=== PATIENT | female | born 1990 | race Caucasian/White ===

== ENCOUNTER 2017-10-09 03:30 | Emergency (ER) | payer SELFPAY ==
[~2017-10-09] VITALS: Ht 177.8 cm; Wt 120.2 kg
[2017-10-09 03:35] VITALS: TEMP 36.4; Ht 177.8 cm; Wt 120.2 kg
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
[2017-10-09 05:22] VITALS: BP 125/60; PULSE 81; O2SAT 97
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
== END 2017-10-09 05:25 | disposition home or self-care (01) ==
LOC: EDBD 03:30 → C.EDA 03:32
DX: S09.90XA Unspecified injury of head, initial encounter (principal); S00.81XA Abrasion of other part of head, initial encounter; T76.11XA Adult physical abuse, suspected, initial encounter; Y00.XXXA Assault by blunt object, initial encounter; Y92.59 Other trade areas as the place of occurrence of the external cause; F17.200 Nicotine dependence, unspecified, uncomplicated

== ENCOUNTER 2017-11-20 16:33 | Emergency (ER) | payer OTHER ==
[~2017-11-20] VITALS: Ht 177.8 cm; Wt 118.0 kg
[2017-11-20 16:46] VITALS: TEMP 36.6; Ht 177.8 cm; Wt 118.0 kg
[2017-11-20] MEDS ORDERED: ONDANSETRON INJ 2 MG/ML 2 ML VIAL IV STA (17:24)
[2017-11-20] MEDS ORDERED: SODIUM CHLORIDE 0.9% 1000ML 2,000 ML IV STA (17:24)
[2017-11-20] MEDS ORDERED: FAMOTIDINE 20 MG TAB PO ONE (17:30)
--- NOTE | 2017-11-20 17:37 | EMERGENCY ROOM VISIT NOTE ---
History Report prepared by Eric: Lakshmi Sinclair Under the Supervision of: Dr. Kar Ching M.D. First contact with patient: 17:19 Chief Complaint: GI ASSESSMENT Stated Complaint: VOMITING BLOOD, DIARRHEA, BLACK/TARRY STOOL, ABD P History of Present Illness The patient is a 27 year old female who presents to the Emergency Room with complaints of a GI assessment today. She reports having nausea, vomiting, and diarrhea over the last 4 days. She states that she had bloody stool and that it is black now, and states that she last vomited at 0200 this morning. The patient reports that when she vomited 4 days ago there was blood in it. She reports that she had a bowel movement today and that it has been more solid today than it had been the last couple of days. She also reports having abdominal pain, dizziness, and headaches but denies having fevers, chills, a cough, and blood in her urine. The patient states that she felt sick after dinner 4 days ago and thought that her symptoms would go away but they have not. She reports that she started new anxiety medications today and reports that she saw her psychiatrist yesterday, but did not tell her psychiatrist about her GI symptoms. The patient states that she does not take any other medications. She states that she is due for her menstrual cycle soon but does not think that her pain is related. The patient states that she has not had this pain before and denies a family history of colitis, bowel disease, and colon cancer. Source of History: patient Onset: today Position: other (GI system ) Quality: other (assessment ) Associated Symptoms: + headache, + nausea, + vomiting, + diarrhea, No fevers , No chills, No cough Note: additional symptoms: black and bloody stool, blood in vomit, dizziness denies: blood in urine Review of Systems See HPI for pertinent positives and negatives. A total of ten systems were reviewed and were otherwise negative. Past Medical & Surgical Medical Problems: (1) Anxiety Family History Diabetes mellitus Hypertension Social History Smoking Status: Current Some Day Smoker Alcohol Use: none Drug Use: none Occupation Status: employed Current/Historical Medications Scheduled Bupropion (Wellbutrin), 100 MG PO DAILY Buspirone Hcl (Buspirone Hcl), 10 MG PO TID Famotidine (Pepcid), 20 MG PO BID Allergies Coded Allergies: No Known Allergies (Unverified , 11/20/17) Physical Exam Vital Signs Date Time Temp Pulse Resp B/P (MAP) Pulse Ox O2 Delivery O2 Flow Rate FiO2 11/20/17 20:07 78 20 120/71 98 11/20/17 18:13 76 11/20/17 16:46 36.6 84 18 123/75 95 Room Air Physical Exam GENERAL: Awake, alert, fatigued-appearing, in no distress HENT: Normocephalic, atraumatic. Dry mucous membranes, otherwise oropharynx unremarkable. EYES: Normal conjunctiva. Sclera non-icteric. NECK: Supple. No nuchal rigidity. FROM. No JVD. RESPIRATORY: Clear to auscultation. CARDIAC: Regular rate, normal rhythm. Extremities warm and well perfused. Pulses equal. ABDOMEN: Soft, non-distended. Generalized abdominal discomfort. No discrete tenderness. No rebound or guarding. No masses. RECTAL: No hemorrhoids. Brown stool. Guaiac positive. MUSCULOSKELETAL: Chest examination reveals no tenderness. The back is symmetrical on inspection without obvious abnormality. There is no CVA tenderness to palpation. No joint edema. LOWER EXTREMITIES: Calves are equal size bilaterally and non-tender. No edema. No discoloration. NEURO: Normal sensorium. No sensory or motor deficits noted. SKIN: No rash or jaundice noted. Medical Decision & Procedures ER Provider Diagnostic Interpretation: Radiology results as stated below per my review and radiologist interpretation: CHEST ONE VIEW PORTABLE CLINICAL HISTORY: Hemoptysis. Pain, radiating to the abdomen. COMPARISON STUDY: No previous studies for comparison. FINDINGS: The cardiac and mediastinal contours are normal. There is no evidence of focal pulmonary consolidation. There is no evidence of failure. No pleural effusions are visualized.[ No free intraperitoneal air is visualized. IMPRESSION: No active disease in the chest. Electronically signed by: Adonis Bustillo M.D. 11/20/2017 5:46 PM Dictated Date/Time: 11/20/2017 5:45 PM Laboratory Results 11/20/17 18:00 Red Blood Count 4.37, Mean Corpuscular Volume 93.1, Mean Corpuscular Hemoglobin 31.8, Mean Corpuscular Hemoglobin Concent 34.2, Mean Platelet Volume 9.1, Neutrophils (%) (Auto) 59.3, Lymphocytes (%) (Auto) 30.1, Monocytes (%) (Auto) 7.5, Eosinophils (%) (Auto) 2.5, Basophils (%) (Auto) 0.3, Neutrophils # (Auto) 4.10, Lymphocytes # (Auto) 2.08, Monocytes # (Auto) 0.52, Eosinophils # (Auto) 0.17, Basophils # (Auto) 0.02 11/20/17 18:00 Test 11/20/17 18:00 11/20/17 18:12 White Blood Count 6.91 K/uL (4.8-10.8) Red Blood Count 4.37 M/uL (4.2-5.4) Hemoglobin 13.9 g/dL (12.0-16.0) Hematocrit 40.7 % (37-47) Mean Corpuscular Volume 93.1 fL (80-100) Mean Corpuscular Hemoglobin 31.8 pg (25-34) Mean Corpuscular Hemoglobin Concent 34.2 g/dl (32-36) Platelet Count 308 K/uL (130-400) Mean Platelet Volume 9.1 fL (7.4-10.4) Neutrophils (%) (Auto) 59.3 % Lymphocytes (%) (Auto) 30.1 % Monocytes (%) (Auto) 7.5 % Eosinophils (%) (Auto) 2.5 % Basophils (%) (Auto) 0.3 % Neutrophils # (Auto) 4.10 K/uL (1.4-6.5) Lymphocytes # (Auto) 2.08 K/uL (1.2-3.4) Monocytes # (Auto) 0.52 K/uL (0.11-0.59) Eosinophils # (Auto) 0.17 K/uL (0-0.5) Basophils # (Auto) 0.02 K/uL (0-0.2) RDW Standard Deviation 44.4 fL (36.4-46.3) RDW Coefficient of Variation 13.0 % (11.5-14.5) Immature Granulocyte % (Auto) 0.3 % Immature Granulocyte # (Auto) 0.02 K/uL (0.00-0.02) Anion Gap 6.0 mmol/L (3-11) Est Creatinine Clear Calc Drug Dose 147.2 ml/min Estimated GFR () 117.1 Estimated GFR (Non- 101.0 BUN/Creatinine Ratio 19.5 (10-20) Calcium Level 8.6 mg/dl (8.5-10.1) Total Bilirubin 0.3 mg/dl (0.2-1) Direct Bilirubin < 0.1 mg/dl (0-0.2) Aspartate Amino Transf (AST/SGOT) 61 U/L (15-37) Alanine Aminotransferase (ALT/SGPT) 102 U/L (12-78) Alkaline Phosphatase 116 U/L (45-117) Total Protein 7.4 gm/dl (6.4-8.2) Albumin 3.1 gm/dl (3.4-5.0) Lipase 100 U/L (73-393) Urine Color YELLOW Urine Appearance CLEAR (CLEAR) Urine pH 6.0 (4.5-7.5) Urine Specific [place] 1.023 (1.000-1.030) Urine Protein NEG (NEG) Urine Glucose (UA) NEG (NEG) Urine Ketones NEG (NEG) Urine Occult Blood NEG (NEG) Urine Nitrite NEG (NEG) Urine Bilirubin NEG (NEG) Urine Urobilinogen NEG (NEG) Urine Leukocyte Esterase SMALL (NEG) Urine WBC (Auto) 10-30 /hpf (0-5) Urine RBC (Auto) 0-4 /hpf (0-4) Urine Hyaline Casts (Auto) 1-5 /lpf (0-5) Urine Epithelial Cells (Auto) >30 /lpf (0-5) Urine Bacteria (Auto) 2+ (NEG) Urine Test NEG (NEG) Laboratory results reviewed by me Medications Administered Medications (Trade) Dose Ordered Sig/Aaron Route Start Time Stop Time Status Last Admin Dose Admin Sodium Chloride 2,000 ml @ 999 mls/hr Q2H1M STAT IV 11/20/17 17:24 11/20/17 19:24 DC 11/20/17 18:03 999 MLS/HR Famotidine (Pepcid Tab) 20 mg NOW ONCE PO 11/20/17 17:30 11/20/17 17:32 DC 11/20/17 18:01 20 MG Ondansetron HCl (Zofran Inj) 4 mg NOW STAT IV 11/20/17 17:24 11/20/17 17:32 DC 11/20/17 18:01 4 MG Miscellaneous Medication (Gi Cocktail) 24 ml NOW STAT PO 11/20/17 19:17 11/20/17 19:18 DC 11/20/17 19:28 24 ML ED Course 1723: The patient was evaluated in room C5. A complete history and physical exam was performed. 1914: I reevaluated the patient and she is doing better. Discussed results and discharge instructions: She verbalized understanding and agreement. The patient is ready for discharge. Medical Decision I reviewed the patient's past medical history, medications, and the nursing notes as described above. Differential diagnosis: Etiologies such as diverticulosis, AVM, coagulopathy, colitis, inflammatory bowel disease, malignancy, Rufina-Muhammad tear, esophagitis, peptic ulcer disease , variceal bleed, gastritis, epistaxis, fissure, hemorrhoids, as well as others were entertained. The patient is a 27-year-old woman who presents emergency department with the complaint of nausea vomiting and diarrhea that began several days ago with initially having blood in vomit and black stools all which are improving per hpi. On arrival, the patient is fatigued appearing but no acute distress, afebrile stable vital signs. Rectal exam demonstrates brown stool that is guaiac positive. Exam otherwise unremarkable. Labs also unremarkable including WBC, H&H within normal limits. UA is dirty and the patient denies any symptoms thus will wait for cultures to inform need for treatment. The patient is feeling improved after IV fluids and Pepcid. Symptoms most likely related to a gastritis/gastroenteritis. Given the patient's otherwise well- appearing with reassuring workup there is no need additional imaging or emergent endoscopy. Thus will treat the patient with Pepcid she will follow-up with her PCP. Findings and plan for follow-up reviewed with patient. Patient agreeable and d/c'd per discharge instructions. Medication Reconcilliation Current Medication List: was personally reviewed by me Blood Pressure Screening Patient's blood pressure: Normal blood pressure Impression Primary Impression: Gastroenteritis Scribe Attestation The scribe's documentation has been prepared under my direction and personally reviewed by me in its entirety. I confirm that the note above accurately reflects all work, treatment, procedures, and medical decision making performed by me. Departure Information Dispostion Home / Self-Care Prescriptions Famotidine (PEPCID) 20 Mg Tab 20 MG PO BID for 14 Days, #28 TAB Prov: Kar Ching M.D. 11/20/17 Referrals No Doctor, Assigned (PCP) Forms HOME CARE DOCUMENTATION FORM, IMPORTANT VISIT INFORMATION Patient Instructions ED Gastritis, ED Gastroenteritis Viral, [facility] Additional Instructions Please follow up with your primary care physician on Thursday for re-evaluation. You likely have a viral gastroenteritis/gastritis. Otherwise, your exam, lab results, and xray did not show signs of an emergent condition at this time. Acetaminophen for pain and fevers as needed. Zofran as needed for nausea. Pepcid for acid reduction. Drink plenty of fluids to ensure hydration. Return to the emergency department for worsening symptoms as described in the accompanying instructions.
--- NOTE | 2017-11-20 17:47 | DIAGNOSTIC IMAGING REPORT ---
CHEST ONE VIEW PORTABLE CLINICAL HISTORY: Hemoptysis. Pain, radiating to the abdomen. COMPARISON STUDY: No previous studies for comparison. FINDINGS: The cardiac and mediastinal contours are normal. There is no evidence of focal pulmonary consolidation. There is no evidence of failure. No pleural effusions are visualized.[ No free intraperitoneal air is visualized. IMPRESSION: No active disease in the chest. Electronically signed by: Adonis Bustillo M.D. 11/20/2017 5:46 PM Dictated Date/Time: 11/20/2017 5:45 PM
[2017-11-20] MEDS ORDERED: BUPR-83 PO (18:17)
[2017-11-20] MEDS ORDERED: BUSP-8 PO (18:17)
[2017-11-20 18:21] LABS: BASO % 0.3 %; BASO ABS # 0.02 K/uL (0-0.2); EOS % 2.5 %; EOS ABS # 0.17 K/uL (0-0.5); HEMATOCRIT 40.7 % (37-47); HEMOGLOBIN 13.9 g/dL (12.0-16.0); IG# 0.02 K/uL (0.00-0.02); LYMPH % 30.1 %; LYMPH ABS # 2.08 K/uL (1.2-3.4); MEAN CELL VOLUME 93.1 fL (80-100); MEAN CORPUSCULAR HEMOGLOBIN 31.8 pg (25-34); MEAN CORPUSCULAR HGB CONC 34.2 g/dl (32-36); MEAN PLATELET VOLUME 9.1 fL (7.4-10.4); MONO % 7.5 %; MONO ABS # 0.52 K/uL (0.11-0.59); NEUT % 59.3 %; PLATELET COUNT 308 K/uL (130-400); RED CELL DISTRIBUTION WIDTH SD 44.4 fL (36.4-46.3); WHITE BLOOD COUNT 6.91 K/uL (4.8-10.8)
[2017-11-20 18:40] LABS: ALBUMIN 3.1 gm/dl (3.4-5.0); ALT/SGPT 102 U/L (12-78); AST/SGOT 61 U/L (15-37); BLOOD UREA NITROGEN 16 mg/dl (7-18); CALCIUM 8.6 mg/dl (8.5-10.1); CARBON DIOXIDE 24 mmol/L (21-32); GLUCOSE 96 mg/dl (70-99); LIPASE 100 U/L (73-393); POTASSIUM 3.9 mmol/L (3.5-5.1); SODIUM 137 mmol/L (136-145)
[2017-11-20 18:43] LABS: ALKALINE PHOSPHATASE 116 U/L (45-117); TOTAL PROTEIN 7.4 gm/dl (6.4-8.2)
[2017-11-20] MEDS ORDERED: GI COCKTAIL PO STA (19:17)
[2017-11-20] MEDS ORDERED: FAMO20TA9 PO (19:21)
[2017-11-20] MEDS ORDERED: ALUMINUM/MAGNESIUM SUSP 30 ML UDC ONE (19:26)
[2017-11-20] MEDS ORDERED: LIDOCAINE HCL 2% VISC SOLN 20 ML UDC ONE (19:26)
[2017-11-20 20:07] VITALS: BP 120/71; PULSE 78; O2SAT 98
== END 2017-11-20 20:08 | disposition home or self-care (01) ==
LOC: C.EDB 16:35 → C.EDC 20:08
DX: K52.9 Noninfective gastroenteritis and colitis, unspecified (principal); F41.9 Anxiety disorder, unspecified; Z83.3 Family history of diabetes mellitus; Z82.49 Family history of ischemic heart disease and other diseases of the circulatory system; F17.210 Nicotine dependence, cigarettes, uncomplicated; Z79.899 Other long term (current) drug therapy

== ENCOUNTER → 2017-12-09 | Outpatient (CLI) | payer OTHER ==
[~2017-12-09] MED LIST: BUPR-83 PO; BUSP-8 PO
[2017-12-09 12:26] LABS: BASO % 0.4 %; BASO ABS # 0.02 K/uL (0-0.2); EOS % 4.2 %; EOS ABS # 0.19 K/uL (0-0.5); HEMATOCRIT 39.4 % (37-47); HEMOGLOBIN 13.3 g/dL (12.0-16.0); IG# 0.02 K/uL (0.00-0.02); LYMPH % 30.3 %; LYMPH ABS # 1.38 K/uL (1.2-3.4); MEAN CELL VOLUME 92.9 fL (80-100); MEAN CORPUSCULAR HEMOGLOBIN 31.4 pg (25-34); MEAN CORPUSCULAR HGB CONC 33.8 g/dl (32-36); MONO % 6.6 %; NEUT % 58.1 %; NEUT ABS # 2.65 K/uL (1.4-6.5); PLATELET COUNT 312 K/uL (130-400); RED CELL DISTRIBUTION WIDTH CV 12.7 % (11.5-14.5); RED CELL DISTRIBUTION WIDTH SD 42.9 fL (36.4-46.3); WHITE BLOOD COUNT 4.56 K/uL (4.8-10.8)
[2017-12-09 15:10] LABS: ALBUMIN 3.5 gm/dl (3.4-5.0); ALT/SGPT 37 U/L (12-78); AST/SGOT 22 U/L (15-37); BLOOD UREA NITROGEN 11 mg/dl (7-18); CALCIUM 8.8 mg/dl (8.5-10.1); CARBON DIOXIDE 24 mmol/L (21-32); CREATININE 0.78 mg/dl (0.60-1.20); GLUCOSE 91 mg/dl (70-99); POTASSIUM 3.6 mmol/L (3.5-5.1); SODIUM 137 mmol/L (136-145)
[2017-12-09 15:23] LABS: ALKALINE PHOSPHATASE 89 U/L (45-117); CHOLESTEROL 195 mg/dl (0-200); LDL CHOLESTEROL CALCULATED 130 mg/dl; TOTAL PROTEIN 8.1 gm/dl (6.4-8.2)
== END | disposition home or self-care (01) ==
LOC: C.LAB 10:10
PROVIDERS: ATTEND Psychiatry & Neurology Psychiatry
DX: F90.9 Attention-deficit hyperactivity disorder, unspecified type (principal)

== ENCOUNTER 2019-02-13 22:04 | Inpatient (IN) ==
[2019-02-13] MEDS ORDERED: ONDANSETRON INJ 2 MG/ML 2 ML VIAL IV STA (23:37)
[2019-02-13] MEDS ORDERED: ACETAMINOPHEN 1,000 MG/100 ML VIAL IV ONE (23:37)
[2019-02-13] MEDS ORDERED: SODIUM CHLORIDE 0.9% 1000ML 2,000 ML IV SCH (23:45)
[2019-02-14] MEDS ORDERED: ALBUT/IPRATROP 3MG/0.5MG NEB 3 ML VIAL NEB STA (00:07)
[2019-02-14 00:14] LABS: Basophils # (auto) 0.01 K/uL (0-0.2); Basophils % (auto) 0.1 %; Hematocrit (blood only) 35.4 % (37-47); Hemoglobin 12.6 g/dL (12.0-16.0); Immature Granulocytes # (auto) 0.04 K/uL (0.00-0.02); Immature Granulocytes % (auto) 0.3 %; Lymphocytes # (auto) 0.74 K/uL (1.2-3.4); Lymphocytes % (auto) 6.4 %; Mean Corpuscular Hgb Conc 35.6 g/dL (32-36); Mean Corpuscular Volume 88.7 fL (80-100); Mean Platelet Volume 9.5 fL (7.4-10.4); Monocytes % (auto) 12.1 %; Neutrophils # (auto) 9.39 K/uL (1.4-6.5); Neutrophils % (auto) 81.1 %; Platelet Count 190 K/uL (130-400); RDW Coefficient of Variation 12.5 % (11.5-14.5); RDW Standard Deviation 40.6 fL (36.4-46.3); Red Blood Count 3.99 M/uL (4.2-5.4); White Blood Count 11.58 K/uL (4.8-10.8)
[2019-02-14 00:20] LABS: Appearance Urine Cloudy (Clear); Bacteria Urine Automated 4+ (Negative); Bilirubin Urine Negative (Negative); Blood Urine 2+ (Negative); Color Urine Dark Yellow; Epithelial Cell Urine Auto >30 /lpf (0-5); Glucose Urine UA Negative (Negative); Ketones Urine Trace (Negative); Leukocyte Esterase Urine 2+ (Negative); Nitrite Urine Positive (Negative); Protein Urine 2+ (Negative); Specific Gravity Urine 1.025 (1.000-1.030); Urobilinogen Urine Negative (Negative); WBC Urine Automated >30 /hpf (0-5); pH Urine 6.5 (4.5-7.5)
[2019-02-14 00:31] LABS: Albumin Level 3.2 gm/dl (3.4-5.0); BUN Creatinine Ratio 7.8 (10-20); Calcium 8.1 mg/dl (8.5-10.1); Creatinine Clr Calc Pharmacy 162.5 ml/min; Est GFR (African American) 134.3; Est GFR (Non-African American) 115.9; Potassium 3.2 mmol/L (3.5-5.1)
[2019-02-14 00:34] LABS: Albumin Globulin Ratio 0.8 (0.9-2); Bilirubin,Total 0.5 mg/dl (0.2-1); C Reactive Protein 15.9 mg/dl (0-0.29); Globulin 4.2 gm/dl (2.5-4.0); Total Protein 7.4 gm/dl (6.4-8.2)
[2019-02-14 00:38] LABS: Pregnancy Test, Serum Negative (Negative)
[2019-02-14] MEDS ORDERED: KETOROLAC TROMETHAMINE 15 MG/ML VIAL IV ONE (00:45)
[2019-02-14] MEDS ORDERED: cefTRIAXone SODIUM 2,000 MG in DEXTROSE 5% 50 ML IV STA (00:46)
[2019-02-14 01:00] LABS: Lyme Ab IgG w/WB Rflx Negative (Negative); Lyme Ab IgM w/WB Rflx Negative (Negative)
[2019-02-14] MEDS ORDERED: VANCOMYCIN HCL 2,250 MG in SODIUM CHLORIDE 0.9% 500 ML IV ONE (03:14)
[2019-02-14] MEDS ORDERED: VANCOMYCIN CONSULT ACTIVE PRN (03:14)
--- NOTE | 2019-02-14 03:30 | Emergency Department Note ---
Entered by Ela Mcmanus acting as a scribe for Hussein Arnold MD ED Provider Note CHIEF COMPLAINT: Flu like symptoms HISTORY OF PRESENT ILLNESS: The patient is a 28 year old female who presents to the Emergency Room with complaints of constant flu like symptoms that started two days ago. The patient reports she has been throwing up since Thursday. She notes she has a fever, chest pain, night sweats, and migraine. The patient states she has been hot and cold and has breathing difficulties. She reports her bowel movements are dark. The patient states she coughs before she vomits. She notes she does not have history of asthma. The patient reports shes gets a lot of UTI but never has frequency or burning. Pt denies LOC, headache, diaphoresis, diarrhea, visual changes, neck pain, nausea, abdominal pain, back pain, melena, hematochezia, urinary symptoms, numbness, weakness, lymphadenopathy, rash, or other complaints. REVIEW OF SYSTEMS: See HPI for pertinent positives and negatives. A total of ten systems were reviewed and were otherwise negative. PMHx/PSHx: Anxiety SOCIAL HISTORY: Patient lives at home. PHYSICAL EXAM: GENERAL: Awake, alert, uncomfortable-appearing, in no distress HENT: Normocephalic, atraumatic. Oropharynx unremarkable. EYES: PERRL. Normal conjunctiva. Sclera non-icteric. NECK: Inspection normal. Non-tender. Supple. No nuchal rigidity. FROM. No masses. RESPIRATORY: Clear to auscultation. No wheezes. No rales. Normal respiratory effort. CARDIAC: Tachycardic rate. Normal rhythm. Wheezing. No murmurs. No rubs. Extremities warm and well perfused. Pulses equal. No JVD. GI: Soft, non-distended. No tenderness to palpation. No rebound or guarding. No masses. RECTAL: Deferred. MUSCULOSKELETAL: Atraumatic. Chest examination reveals no tenderness. The back is symmetrical on inspection without obvious abnormality. There is no CVA tenderness to palpation. No joint edema. LOWER EXTREMITIES: Calves are equal size bilaterally and non-tender. No edema. No discoloration. NEURO: Normal sensorium. No sensory or motor deficits noted. SKIN: No rash or jaundice noted. EMERGENCY DEPARTMENT COURSE: 2336: Past medical records reviewed. The patient was evaluated in room C5, and a complete history and physical examination were performed. 0048: I checked on the patient. The patient is feeling better but no vomiting. Her body is still achy so I ordered her Toradol. I ordered a blood culture and a lactate. 0200: I checked on the patient. The patient is feeling better. 0245: Patient was reassessed. She is hemodynamically stable. Discussed admission to the hospital and in agreement. Vancomycin ordered. She notes that she has been getting UTIs about once or twice a year and does not remember the last antibiotic that she is been prescribed. MEDICAL DECISION MAKING: Triage Nursing notes reviewed and agree them. The patient's history was concerning for fever. Differential diagnosis: Etiologies such as viral syndrome, sepsis, bacteremia, otitis, pharyngitis, pneumonia, influenza,meningitis, urinary tract infection, as well as others were entertained. Physical examination: As above. No meningeal findings. No nuchal rigidity. The patient did have some wheezing. ER treatment provided: IV normal saline hydration DuoNeb IV Tylenol IV Zofran IV Toradol On reassessment the patient felt better. IV Rocephin IV vancomycin Diagnostics interpreted by me: The labs revealed a moderate leukocytosis on CBC. Chemistry panel does reveal minimal hypokalemia. Urinalysis was very concerning for infection. Blood cultures performed. Lactate performed. Blood cultures pending. Lactate was less than 1. Patient has a significant elevation of CRP. Imaging studies: Chest x-ray. Findings: A chest x-ray was performed and revealed no pneumothorax, effusion, infiltrate, pulmonary edema, free air under the diaphragm, or wide mediastinum. CT imaging of the abdomen pelvis reveals stranding around the left kidney. There is a left renal stone but no ureterolithiasis. She does have some trace fluid in the pelvis. The patient presented with flulike symptoms and vomiting for several days. She was hydrated. She had her fever controlled pain controlled with Tylenol and Toradol. She has a leukocytosis, stranding around the left kidney and an elevated CRP. Concerned that she has a significant pyelonephritis. There is no evidence of renal abscess. There is also some concerns about possible bacteremia given the symptoms. I discussed continued hydration and treatment in the hospital. The patient was in agreement. Consultation: A consultation was placed with the. The case was discussed and diagnostics were reviewed. The patient was evaluated in the ER for further treatment. IMPRESSION: Pyelonephritis Fever Leukocytosis Myalgias Headache PLAN: Admitted The scribe's documentation has been prepared under my direction and personally reviewed by me in its entirety. I confirm that the note above accurately reflects all work, treatment, procedures, and medical decision making performed by me. Impression & Plan Fever Past Med/Surg History Medical History Anxiety (Chronic) Family History Other Diabetes Hypertension Social History Feels Safe at Home: Yes Smoking Status: Current every day smoker Results & Data Vital Signs Vital Signs - 24 hr 02/13/19 22:04 02/14/19 00:16 02/14/19 00:31 Temperature 39.5 C H Temperature Source Oral Sepsis Recent Fever Within 48 Hours Yes Sepsis Action Taken by Nursing No Action Required Pulse Rate 114 H Pulse Rate [Right Finger] 99 H 102 H Respiratory Rate 22 18 18 Respiratory Effort / Characteristics Non-Labored Spontaneous Blood Pressure 126/66 Blood Pressure [Right Arm] 127/72 Blood Pressure Mean 86 Blood Pressure Mean [Right Arm] 90 Blood Pressure Position Sitting Pulse Oximetry 94 97 96 Oxygen Delivery Method Room Air Room Air Room Air 02/14/19 00:53 02/14/19 03:11 Temperature 37.6 C H Temperature Source Oral Sepsis Recent Fever Within 48 Hours Sepsis Action Taken by Nursing Pulse Rate Pulse Rate [Right Finger] 90 Respiratory Rate 18 Respiratory Effort / Characteristics Blood Pressure Blood Pressure [Right Arm] 130/53 L Blood Pressure Mean Blood Pressure Mean [Right Arm] 78 Blood Pressure Position Pulse Oximetry 97 Oxygen Delivery Method Room Air Home Medications Current Medication List: was personally reviewed by me Laboratory Data Attestation: I reviewed the patient's lab results. Result diagrams: 02/13/19 23:58 02/13/19 23:58 Lab Results 02/13/19 02/13/19 02/13/19 Range/Units 23:58 23:58 23:58 WBC 11.58 H (4.8-10.8) K/uL RBC 3.99 L (4.2-5.4) M/uL Hgb 12.6 (12.0-16.0) g/dL Hct 35.4 L (37-47) % MCV 88.7 (80-100) fL MCH 31.6 (25-34) pg MCHC 35.6 (32-36) g/dL RDW Std Deviation 40.6 (36.4-46.3) fL RDW Coeff of Segun 12.5 (11.5-14.5) % Plt Count 190 (130-400) K/uL MPV 9.5 (7.4-10.4) fL Immature Gran % (Auto) 0.3 % Neut % (Auto) 81.1 % Lymph % (Auto) 6.4 % Wood % (Auto) 12.1 % Eos % (Auto) 0.0 % Baso % (Auto) 0.1 % Immature Gran # (Auto) 0.04 H (0.00-0.02) K/uL Neut # (Auto) 9.39 H (1.4-6.5) K/uL Lymph # (Auto) 0.74 L (1.2-3.4) K/uL Wood # (Auto) 1.40 H (0.11-0.59) K/uL Eos # (Auto) 0.00 (0-0.5) K/uL Baso # (Auto) 0.01 (0-0.2) K/uL Sodium 132 L (136-145) mmol/L Potassium 3.2 L (3.5-5.1) mmol/L Chloride 103 (98-107) mmol/L Carbon Dioxide 24 (21-32) mmol/L Anion Gap 5.0 (3-11) BUN 6 L (7-18) mg/dl Creatinine 0.71 (0.6-1.2) mg/dl Est Cr Clr Drug Dosing 162.5 ml/min Est GFR ( Amer) 134.3 Est GFR (Non-Af Amer) 115.9 BUN/Creatinine Ratio 7.8 L (10-20) Glucose 112 H (70-99) mg/dl POC Lactic Acid Dante (0.90-1.70) mmol/L Calcium 8.1 L (8.5-10.1) mg/dl Total Bilirubin 0.5 (0.2-1) mg/dl AST 39 H (15-37) U/L ALT 28 (12-78) U/L Alkaline Phosphatase 65 (45-117) U/L C-Reactive Protein 15.90 H (0-0.29) mg/dl Total Protein 7.4 (6.4-8.2) gm/dl Albumin 3.2 L (3.4-5.0) gm/dl Globulin 4.2 H (2.5-4.0) gm/dl Albumin/Globulin Ratio 0.8 L (0.9-2) Lipase 52 L (73-393) U/L HCG, Qual Negative (Negative) Urine Color Urine Appearance (Clear) Urine pH (4.5-7.5) Ur Specific [place] (1.000-1.030) Urine Protein (Negative) Urine Glucose (UA) (Negative) Urine Ketones (Negative) Urine Blood (Negative) Urine Nitrite (Negative) Urine Bilirubin (Negative) Urine Urobilinogen (Negative) Ur Leukocyte Esterase (Negative) Urine WBC (Auto) (0-5) /hpf Urine RBC (Auto) (0-4) /hpf U Hyaline Cast (Auto) (0-5) /lpf U Epithel Cells (Auto) (0-5) /lpf Urine Bacteria (Auto) (Negative) Lyme Disease IgG Ab Negative (Negative) Lyme Disease IgM Ab Negative (Negative) 02/14/19 02/14/19 Range/Units 00:00 01:13 WBC (4.8-10.8) K/uL RBC (4.2-5.4) M/uL Hgb (12.0-16.0) g/dL Hct (37-47) % MCV (80-100) fL MCH (25-34) pg MCHC (32-36) g/dL RDW Std Deviation (36.4-46.3) fL RDW Coeff of Segun (11.5-14.5) % Plt Count (130-400) K/uL MPV (7.4-10.4) fL Immature Gran % (Auto) % Neut % (Auto) % Lymph % (Auto) % Wood % (Auto) % Eos % (Auto) % Baso % (Auto) % Immature Gran # (Auto) (0.00-0.02) K/uL Neut # (Auto) (1.4-6.5) K/uL Lymph # (Auto) (1.2-3.4) K/uL Wood # (Auto) (0.11-0.59) K/uL Eos # (Auto) (0-0.5) K/uL Baso # (Auto) (0-0.2) K/uL Sodium (136-145) mmol/L Potassium (3.5-5.1) mmol/L Chloride (98-107) mmol/L Carbon Dioxide (21-32) mmol/L Anion Gap (3-11) BUN (7-18) mg/dl Creatinine (0.6-1.2) mg/dl Est Cr Clr Drug Dosing ml/min Est GFR ( Amer) Est GFR (Non-Af Amer) BUN/Creatinine Ratio (10-20) Glucose (70-99) mg/dl POC Lactic Acid Dante 0.70 L (0.90-1.70) mmol/L Calcium (8.5-10.1) mg/dl Total Bilirubin (0.2-1) mg/dl AST (15-37) U/L ALT (12-78) U/L Alkaline Phosphatase (45-117) U/L C-Reactive Protein (0-0.29) mg/dl Total Protein (6.4-8.2) gm/dl Albumin (3.4-5.0) gm/dl Globulin (2.5-4.0) gm/dl Albumin/Globulin Ratio (0.9-2) Lipase (73-393) U/L HCG, Qual (Negative) Urine Color Dark Yellow Urine Appearance Cloudy A (Clear) Urine pH 6.5 (4.5-7.5) Ur Specific [place] 1.025 (1.000-1.030) Urine Protein 2+ H (Negative) Urine Glucose (UA) Negative (Negative) Urine Ketones Trace H (Negative) Urine Blood 2+ H (Negative) Urine Nitrite Positive A (Negative) Urine Bilirubin Negative (Negative) Urine Urobilinogen Negative (Negative) Ur Leukocyte Esterase 2+ H (Negative) Urine WBC (Auto) >30 H (0-5) /hpf Urine RBC (Auto) 10-30 H (0-4) /hpf U Hyaline Cast (Auto) 1-5 (0-5) /lpf U Epithel Cells (Auto) >30 H (0-5) /lpf Urine Bacteria (Auto) 4+ H (Negative) Lyme Disease IgG Ab (Negative) Lyme Disease IgM Ab (Negative) Administered Medications Discontinued Medications Albuterol (Duoneb) 3 ml NEB NOW STA Stop: 02/14/19 00:08 Last Admin: 02/14/19 00:14 Dose: 3 ml Documented by: [id number] Acetaminophen (Ofirmev) 1,000 mg in 100 mls @ 400 mls/hr IV NOW ONE Stop: 02/13/19 23:51 Last Infusion: 02/14/19 00:54 Dose: 0 mls/hr Documented by: [id number] Admin: 02/14/19 00:03 Dose: 400 mls/hr Documented by: [id number] Sodium Chloride (Nss 1000ml) 2,000 mls @ 999 mls/hr IV .Q2H1M DIAMANTE Stop: 02/14/19 01:45 Last Infusion: 02/14/19 02:37 Dose: 0 mls/hr Documented by: [id number] Admin: 02/14/19 00:03 Dose: 999 mls/hr Documented by: [id number] Ceftriaxone Sodium 2,000 mg/ (Dextrose) 70 mls @ 100 mls/hr IV NOW STA Stop: 02/14/19 01:27 Last Infusion: 02/14/19 02:37 Dose: 0 mls/hr Documented by: [id number] Admin: 02/14/19 01:48 Dose: 100 mls/hr Documented by: [id number] Ketorolac Tromethamine (Toradol) 10 mg IV NOW ONE Stop: 02/14/19 00:46 Last Admin: 02/14/19 00:54 Dose: 10 mg Documented by: [id number] Ondansetron HCl (Zofran) 4 mg IV NOW STA Stop: 02/13/19 23:38 Last Admin: 02/14/19 00:03 Dose: 4 mg Documented by: [id number] Blood Pressure Blood Pressure Findings: Normal blood pressure Blood Pressure Disposition: did not require urgent referral Discharge Plan Visit Data Chief Complaint: Flu Like Symptoms Stated Complaint: flu ED Provider: Hussein Arnold Discharge Problem: Fever Forms Stand Alone Forms: [employer] [facility] [employer] Prescriptions Prescriptions: No Action Medical Marijuana 1 dose PO BID RF: 0 bismuth subsalicylate [Pepto-Bismol] 262 mg/15 mL Suspension 524 mg PO DIRECTED PRN (Reason: UPSET STOMACH) RF: 0 ibuprofen [Advil] 200 mg Tablet 400 - 600 mg PO DIRECTED PRN (Reason: Pain) RF: 0 pseudoephedrine HCl [Sudafed] 30 mg Tablet 30 mg PO Q6H PRN (Reason: Congestion) RF: 0 Vicks DayQuil Cold-Flu Relief 5-10-325 mg/15 mL Liquid PO DIRECTED PRN (Reason: COLD/FLU SYMPTOMS) RF: 0 Referrals Referrals: PCP,NO [Primary Care Provider] - The scribe's documentation has been prepared under my direction and personally reviewed by me in its entirety. I confirm that the note above accurately reflects all work, treatment, procedures, and medical decision making performed by me.
[2019-02-14] MEDS ORDERED: OXYCODONE HCL IR 5 MG TAB (IMMEDIATE RELEASE) PO STA (04:21)
[2019-02-14] MEDS ORDERED: POTASSIUM CHLORIDE 10 MEQ TABCR PO STA (04:27)
[2019-02-14] MEDS ORDERED: SODIUM CHLORIDE 0.9% 1000ML 1,000 ML IV SCH (05:21)
[2019-02-14] MEDS ORDERED: ONDANSETRON INJ 2 MG/ML 2 ML VIAL IV PRN (05:21)
[2019-02-14] MEDS: ACETAMINOPHEN 325 MG TAB PO PRN ×3 (05:59→23:47)
[2019-02-14] MEDS ORDERED: IBUPROFEN 200 MG TAB PO STA (06:49)
--- NOTE | 2019-02-14 07:36 | XRay Report ---
XR chest 1V portable HISTORY: fever COMPARISON: Chest 11/20/2017. FINDINGS: The lungs are clear. Cardiac silhouette is normal in size. No pleural effusions. No pneumot horax. IMPRESSION: No acute process. Electronically signed by: Joselito Lewis M.D. 02/14/2019 7:35 AM
--- NOTE | 2019-02-14 07:56 | CT Scan Report ---
ABDOMEN AND PELVIS CT WITHOUT CONTRAST CT DOSE: 1616.65 mGy.cm HISTORY: fever, UTI TECHNIQUE: Multiaxial CT images of the abdomen and pelvis were performed without contrast. A dose lo wering technique was utilized adhering to the principles of ALARA. COMPARISON STUDY: None. FINDINGS: The lung bases are clear. No fractures within the visualized osseous structures. The unenha nced liver, gallbladder, spleen, adrenal glands, pancreas, and right kidney are unremarkable. Mild le ft perinephric fat stranding/edema. There is a 5 mm stone within the lower pole of the left kidney. N o left-sided hydronephrosis. No ureteral stones identified. The bladder is unremarkable. The uterus a nd ovaries are within normal limits. Normal appendix. Trace pelvic free fluid. No bladder wall thicke fernando. No bowel wall thickening or obstruction. A single mildly enlarged left periaortic lymph node me asuring 14 x 11 mm. This may be reactive to the adjacent left renal inflammatory change. IMPRESSION: 1. A 5 mm stone within the lower pole of the left kidney. No ureteral stones. No hydronephrosis. 2. Mild left perinephric fat stranding. This favors a pyelonephritis. Recommend correlation with urin alysis. 3. Normal appendix. 4. Trace pelvic free fluid. Electronically signed by: Joselito Lewis M.D. 02/14/2019 7:54 AM
[2019-02-14] MEDS: MEDICAL MARIJUANA PO SCH ×2 (08:54→20:04)
[2019-02-14] MEDS ORDERED: MEDICAL MARIJUANA INH SCH (09:00)
--- NOTE | 2019-02-14 09:01 | Hospitalist Progress Note ---
Date of Service February 14, 2019 Assessment & Plan (1) Pyelonephritis: (2) Leukocytosis: (3) Fever: (4) Anxiety: (5) Obesity (BMI 30.0-34.9): Continue abx and IVFs, will follow, DC when afeb, WBCs are normal and teresa diet, Labs reviewed ROS-No Headache, No Visual Changes, + Nausea, No Vomiting, +Fever, No Chills, No Neck Pain or Stiffness, No Chest Pain, No Palpitations, No SOB, No HIGGINS, No Cough, No Sputum, No Wheezing, No Abdominal Pain, No Diarrhea, No Hematemesis, No Hemoptysis, No Unexpected Weight Loss, No Flank pain, No Melena, No Hematochezia, No Frequency, No Urgency, No Burning, No Hematuria, No Rashes, No Diaphoresis. Appetite is Normal Physical Exam Gen-AAO x 3, NAD, febrile Head-NCAT, EOMI, PERRLA, Anicteric Sclera, No Posterior Pharyngeal Erythema Neck-Supple, No JVD, No Thyromegaly, No Masses, No LAD, No Bruits Lungs-Clear to Auscultation Bilaterally, No Rales, No Rhonchi, No Wheezing, No Crepitus Chest-No S4, +S1, +S2, No S3, No Murmurs, No Rubs, No Gallops, No Ectopy Abdomen-Soft, Bowel Sounds Present, Non Tender, Non Distended, No Hepatomegaly, No Splenomegaly, No Palpable Masses, No Rebound, No Rigidity, No Guarding Musculoskeletal-Full Range of Motion Bilaterally, No CVAT Extremities-No Cyanosis, No Clubbing, No Edema Nuero-Cranial Nerves II-XII grossly intact, Motor WNL, DTRs WNL, Strength WNL, Non Focal Psych-Anxious Results & Data Vital Signs (Past 12 Hours) Vital Signs Temp Pulse Pulse Resp BP BP BP 02/14/19 08:51 37.3 C 02/14/19 07:00 39.3 C H 96 H 18 125/84 02/14/19 05:21 37.2 C 94 H 20 135/84 02/14/19 05:05 78 18 128/71 02/14/19 04:05 76 16 127/69 02/14/19 03:11 90 18 130/53 L 02/14/19 00:53 37.6 C H 07/01/19 00:31 102 H 18 127/72 02/14/19 00:16 99 H 18 02/13/19 22:04 39.5 C H 114 H 22 126/66 Pulse Ox 02/14/19 08:51 02/14/19 07:00 98 02/14/19 05:21 100 02/14/19 05:05 98 02/14/19 04:05 99 02/14/19 03:11 97 02/14/19 00:53 02/14/19 00:31 96 02/14/19 00:16 97 02/13/19 22:04 94 Allergies No Known Allergies Allergy (Verified 02/13/19 22:18) Height/Weight/Isolation Height 5 ft 11 in Weight 113.1 kg Chemistry 02/13/19 23:58 Sodium 132 L Potassium 3.2 L Chloride 103 Carbon Dioxide 24 Anion Gap 5.0 BUN 6 L Creatinine 0.71 Glucose 112 H Urinalysis 02/14/19 00:00 Urine Color Dark Yellow Urine Appearance Cloudy A Urine pH 6.5 Ur Specific [place] 1.025 Urine Protein 2+ H Urine Glucose (UA) Negative Urine Ketones Trace H Urine Blood 2+ H Urine Nitrite Positive A Urine Bilirubin Negative Microbiology 02/14/19 01:44 Blood Aerobic Blood Culture - Pending 02/14/19 01:44 Blood Anaerobic Blood Culture - Pending 02/14/19 01:00 Blood Aerobic Blood Culture - Pending 02/14/19 01:00 Blood Anaerobic Blood Culture - Pending 02/14/19 00:00 Urine,Clean Catch Urine Culture - Pending
--- NOTE | 2019-02-14 09:10 | History and Physical Report ---
DATE OF ADMISSION: 02/14/2019 CHIEF COMPLAINT: Flu-like illness. HISTORY OF PRESENT ILLNESS: A 28-year-old female with past medical history significant for kidney stones, presents with flu-like symptoms going on for last couple of days, feeling whole body aching, having severe headaches, nausea, vomiting, not feeling well, has some frequent urination. Denies any burning micturition. Has fever in the ER. Denies any cough or shortness of breath. No diarrhea or constipation. No blood in the stools. No swelling in the legs. No rash. Currently resting comfortably. Hemodynamically stable. Smokes cigarettes and also smokes medical marijuana. Denies any recent drug abuse, says she used to do all kinds of drugs, but quit 3 years ago. Drinks alcohol occasionally. ALLERGIES: No known drug allergies. PAST MEDICAL HISTORY: As mentioned above. PAST SURGICAL HISTORY: Significant for ligation of oviduct and ankle surgery. MEDICATIONS: None except medical marijuana as per patient. FAMILY HISTORY: Denies any family history. SOCIAL HISTORY: Smokes cigarettes daily. Alcohol once a month. Smokes medical marijuana. Says quit drugs 3 years ago. REVIEW OF SYMPTOMS: As per HPI. Rest of review of symptoms negative. PHYSICAL EXAMINATION: GENERAL: The patient is of moderate build, not in acute distress. VITAL SIGNS: Temperature when she came in 39.5, pulse 76, respiratory rate 16, blood pressure 127/69 and oxygen 99% on room air. HEENT: No pallor, no icterus. Pupils equal, round, and reactive to light. NECK: No JVD, no neck masses, no carotid bruit. CARDIOVASCULAR: S1, S2 heard, regular rate and rhythm, no murmur, no gallop. RESPIRATORY SYSTEM: Normal AP diameter. No accessory muscle use. No wheezing, no crackles. ABDOMEN: Soft, bowel sounds present. Nontender. No distention. CENTRAL NERVOUS SYSTEM: Cranial nerves II-XII grossly intact, nonfocal. EXTREMITIES: No edema, no erythema. LABORATORY DATA: WBC 11.5, hemoglobin 12.6, hematocrit 35.4, platelets 190. Sodium 132, potassium 3.2, chloride 103, bicarbonate 24, BUN 6, creatinine 0.7, serum glucose 111, point of care lactic acid 0.7, total bilirubin 0.5, AST 39, ALT 28, alkaline phosphatase 65, calcium 8.16, C-reactive protein 15, lipase 52. HCG negative. Urinalysis positive for leukocyte esterase and nitrites. Lyme screen negative. IMAGING DATA: Chest x-ray, no acute findings seen. CT of the abdomen and pelvis, unofficial report, nonobstructing left lower pole renal stone, nonspecific left perinephric stranding, mild hepatosplenomegaly. ASSESSMENT AND PLAN: This is a 28-year-old female who presents with flu-like symptoms, found to have acute left pyelonephritis. 1. Acute pyelonephritis on left side, we will wait for official report of CAT scan. Had temp spike and white count in the ER. In the ER, received Rocephin and vancomycin. We will follow the cultures. We will continue Rocephin for now. IV fluids 125 mL per hour. 2. severe headaches.possibly from above.Pain control.Will monitor.. 3. Hypokalemia, will replace. 4. Hyponatremia, getting fluids. We will follow the labs in a.m. 5. Deep venous thrombosis prophylaxis, sequential compression devices for now. 6. Disposition: Admit to medical floor. Expect to discharge home and follow with the family doctor. Level 1 full code. MTDD
[2019-02-14] MEDS ORDERED: POTASSIUM CHLORIDE 40 MEQ in D5W AND NSS 1,000 ML IV SCH (09:30)
[2019-02-14] MEDS ORDERED: ONDANSETRON 4 MG OD TAB PO PRN (13:02)
[2019-02-14] MEDS ORDERED: KETOROLAC 30 MG/ML VIAL IV PRN (17:46)
[2019-02-14] MEDS ORDERED: PROCHLORPERAZINE MALEATE 10 MG TAB PO STA (19:10)
[2019-02-14] MEDS: KETOROLAC TROMETHAMINE 10 MG TABLET PO PRN (19:34)
[2019-02-14] MEDS: cefUROXime axetil 500 MG TAB PO SCH (21:13)
[2019-02-14] MEDS: DOXYCYCLINE HYCLATE 100 MG CAP PO SCH (21:13)
[2019-02-15] MEDS ORDERED: cefTRIAXone SODIUM 2,000 MG in DEXTROSE 5% 50 ML IV SCH (02:00)
[2019-02-15 05:36] LABS: Hematocrit (blood only) 35.3 % (37-47); Hemoglobin 11.9 g/dL (12.0-16.0); Mean Corpuscular Hgb Conc 33.7 g/dL (32-36); Mean Corpuscular Volume 90.5 fL (80-100); Mean Platelet Volume 9.4 fL (7.4-10.4); Platelet Count 186 K/uL (130-400); RDW Coefficient of Variation 12.7 % (11.5-14.5); RDW Standard Deviation 42.1 fL (36.4-46.3)
[2019-02-15 06:04] LABS: BUN Creatinine Ratio 5.9 (10-20); Calcium 8.1 mg/dl (8.5-10.1); Creatinine Clr Calc Pharmacy 168.1 ml/min; Est GFR (African American) 137.3; Est GFR (Non-African American) 118.5; Magnesium 2.1 mg/dl (1.8-2.4); Potassium 3.2 mmol/L (3.5-5.1)
[2019-02-15] MEDS: MEDICAL MARIJUANA PO SCH ×2 (08:20→19:43)
[2019-02-15] MEDS: cefUROXime axetil 500 MG TAB PO SCH ×2 (08:22→21:02)
[2019-02-15] MEDS: DOXYCYCLINE HYCLATE 100 MG CAP PO SCH ×2 (08:23→21:02)
[2019-02-15] MEDS: KETOROLAC TROMETHAMINE 10 MG TABLET PO PRN (09:00)
--- NOTE | 2019-02-15 11:24 | Hospitalist Progress Note ---
Date of Service February 15, 2019 Assessment & Plan (1) Pyelonephritis: (2) Leukocytosis: (3) Fever: (4) Anxiety: (5) Obesity (BMI 30.0-34.9): Less nauseous today, starting to feel better, still complaining of fevers. Continue abx and IVFs, DC when afeb, WBCs are normal and appetite is returning however she still nauseous, Labs reviewed ROS-No Headache, No Visual Changes, + Nausea, No Vomiting, +Fever, No Chills, No Neck Pain or Stiffness, No Chest Pain, No Palpitations, No SOB, No HIGGINS, No Cough, No Sputum, No Wheezing, No Abdominal Pain, No Diarrhea, No Hematemesis, No Hemoptysis, No Unexpected Weight Loss, No Flank pain, No Melena, No Hematochezia, No Frequency, No Urgency, No Burning, No Hematuria, No Rashes, No Diaphoresis. Appetite is Normal, overall improving, back pain much better today, had headache yesterday, but that is gone now Physical Exam Gen-AAO x 3, NAD, febrile Head-NCAT, EOMI, PERRLA, Anicteric Sclera, No Posterior Pharyngeal Erythema Neck-Supple, No JVD, No Thyromegaly, No Masses, No LAD, No Bruits Lungs-Clear to Auscultation Bilaterally, No Rales, No Rhonchi, No Wheezing, No Crepitus Chest-No S4, +S1, +S2, No S3, No Murmurs, No Rubs, No Gallops, No Ectopy Abdomen-Soft, Bowel Sounds Present, Non Tender, Non Distended, No Hepatomegaly, No Splenomegaly, No Palpable Masses, No Rebound, No Rigidity, No Guarding Musculoskeletal-Full Range of Motion Bilaterally, No CVAT Extremities-No Cyanosis, No Clubbing, No Edema Nuero-Cranial Nerves II-XII grossly intact, Motor WNL, DTRs WNL, Strength WNL, Non Focal Psych-Anxious Results & Data Vital Signs (Past 12 Hours) Vital Signs Temp Pulse Resp BP Pulse Ox 02/15/19 07:42 36.8 C 93 H 16 139/85 95
[2019-02-15 15:19] VITALS: O2SAT 98
[2019-02-15] MEDS: ACETAMINOPHEN 325 MG TAB PO PRN (15:47)
[2019-02-15] MEDS: POTASSIUM CHLORIDE 20 MEQ TABCR PO SCH (21:02)
[2019-02-16 07:30] VITALS: BP 109/73; PULSE 85; TEMP 98.6
[2019-02-16] MEDS: cefUROXime axetil 500 MG TAB PO SCH (08:32)
[2019-02-16] MEDS: POTASSIUM CHLORIDE 20 MEQ TABCR PO SCH (08:32)
[2019-02-16] MEDS: DOXYCYCLINE HYCLATE 100 MG CAP PO SCH (08:32)
[2019-02-16] MEDS: MEDICAL MARIJUANA PO SCH (08:33)
[2019-02-16] MEDS ORDERED: SODIUM CHLORIDE 0.65% NA SOLN 45 ML (OCEAN) ONE (09:40)
[2019-02-16] MEDS ORDERED: SODIUM CHLORIDE 0.65% NA SOLN 45 ML (OCEAN) PRN (09:41)
--- NOTE | 2019-02-16 11:27 | Hospitalist Progress Note ---
Date of Service February 16, 2019 Assessment & Plan (1) Pyelonephritis: CT of abd / pelvis demonstrated left renal calculus, no ureteral calculi, left perinephric stranding. Urine culture grew E coli, resistant to ampicillin and TMP/sulfa. Blood cultures negative. Received cefuroxime with improvement. Discharge on cefuroxime to complete course of therapy. (2) DVT prophylaxis: VTE prophylaxis not indicated per IMPROVE risk assessment tool. (3) Discharge planning issues: Discharge to home. Family Medicine follow-up with Dr. Conti. Subjective Doing well. Fever resolved. No dysuria, hematuria, or flank pain. No nausea, vomiting, diarrhea. Ready to go home. Physical Exam Constitutional: no acute distress Respiratory: no respiratory distress Auscultation: lungs clear to auscultation bilaterally Cardiovascular: Rate/Rhythm: regular rate and regular rhythm Vessels: no JVD Extremities: no calf tenderness and no edema Gastrointestinal (Abdomen): normal bowel sounds, soft, nontender, no hepatosplenomegaly no CVA tenderness Skin: no rashes, warm and dry Psychiatric: Orientation: alert and oriented x 3 Results & Data Vital Signs (Past 12 Hours) Vital Signs Temp Pulse Resp BP Pulse Ox 02/16/19 07:29 37.0 C 85 16 109/73 98 Laboratory Results Microbiology 02/14/19 00:00 Urine,Clean Catch Urine Culture - Final Escherichia coli 02/14/19 01:44 Blood Aerobic Blood Culture - Preliminary No growth in Aerobic bottle after 48 hours. 02/14/19 01:44 Blood Anaerobic Blood Culture - Preliminary No growth in Anaerobic bottle after 48 hours. 02/14/19 01:00 Blood Aerobic Blood Culture - Preliminary No growth in Aerobic bottle after 48 hours. 02/14/19 01:00 Blood Anaerobic Blood Culture - Preliminary No growth in Anaerobic bottle after 48 hours.
--- NOTE | 2019-02-17 04:31 | Discharge Summary ---
Date of Service Date of Admission: 02/14/19 Date of Discharge: 02/16/19 Admission HPI Per Admitting Provider A 28-year-old female with past medical history significant for kidney stones, presents with flu-like symptoms going on for last couple of days, feeling whole body aching, having severe headaches, nausea, vomiting, not feeling well, has some frequent urination. Denies any burning micturition. Has fever in the ER. Denies any cough or shortness of breath. No diarrhea or constipation. No blood in the stools. No swelling in the legs. No rash. Currently resting comfortably. Hemodynamically stable. Smokes cigarettes and also smokes medical marijuana. Denies any recent drug abuse, says she used to do all kinds of drugs, but quit 3 years ago. Drinks alcohol occasionally. Admission Exam Per Admitting Provider GENERAL: The patient is of moderate build, not in acute distress. VITAL SIGNS: Temperature when she came in 39.5, pulse 76, respiratory rate 16, blood pressure 127/69 and oxygen 99% on room air. HEENT: No pallor, no icterus. Pupils equal, round, and reactive to light. NECK: No JVD, no neck masses, no carotid bruit. CARDIOVASCULAR: S1, S2 heard, regular rate and rhythm, no murmur, no gallop. RESPIRATORY SYSTEM: Normal AP diameter. No accessory muscle use. No wheezing, no crackles. ABDOMEN: Soft, bowel sounds present. Nontender. No distention. CENTRAL NERVOUS SYSTEM: Cranial nerves II-XII grossly intact, nonfocal. EXTREMITIES: No edema, no erythema. Principal Diagnosis pyelonephritis Discharge Data Allergies Allergy/AdvReac Type Severity Reaction Status Date / Time No Known Allergies Allergy Verified 02/13/19 22:18 Consultations 02/14/19 03:15 ED Decision to Admit Stat 02/14/19 05:21 Consult Case Management - Discharge Planning Routine Ordered Studies 02/14/19 00:46 CT abd pelvis wo con Stat Hospital Course (1) Pyelonephritis: Presented to ED with fever, malaise, nausea, vomiting. UA showed leukocyte esterase, WBC's, bacteria. CT of abd / pelvis demonstrated left renal calculus, no ureteral calculi, left perinephric stranding. Urine culture grew E coli, resistant to ampicillin and TMP/sulfa. Blood cultures negative. Received cefuroxime with improvement. Discharge on cefuroxime to complete course of therapy. (2) Hypokalemia: Serum K as low as 3.2. Receiving replacement with KCl. Discharge on KCl 10 mEq BID x 1 week. Recheck K in clinic. (3) DVT prophylaxis: VTE prophylaxis not indicated per IMPROVE risk assessment tool. (4) Discharge planning issues: Discharge to home. Family Medicine follow-up with Dr. Conti. Total Time Total Time Spent Total Time Spent (In Minutes): 35 Discharge Plan Discharge Items Patient Disposition: Home - Self-Care Reason For Visit: fever Discharge Diagnosis: kidney infection Condition: Good Discharge Goals: Improve disease control Activity: As commented below Activity Comment: gradually increase activity as tolerated Non-emergency contact: Primary Care Provider and Hospitalist Call non-emergency contact if: you have any medication questions, your symptoms worsen and you have a fever Follow-up/Referrals: Benjy Conti MD [Physician] - (02/23/2019 11:00 AM Benjy Conti MD [facility]) Diet: Regular Addtl Provider Instructions: MEDICATION CHANGES: cefuroxime (Ceftin) twice a day for kidney infection potassium chloride twice a day for low potassium level SUMMARY OF TEST RESULTS: Ultrasound showed signs of left kidney infection. There was also a kidney stone in the left kidney. Urine culture grew E coli (a common bacteria than causes urinary tract infections). PENDING TEST RESULTS: none RECOMMENDATIONS FOR FOLLOW-UP: none OTHER INSTRUCTIONS: Drink plenty of fluids. Seek medical attention if you have: * temperature above 101 * chest pain or trouble breathing * abdominal pain, nausea, vomiting * diarrhea, dark stools or bloody stools * any unanswered questions or concerns Call [phone] if symptoms are severe. Please take good care of yourself. Call if you have any questions or problems. You can reach a [facility] hospitalist on duty at [facility] [address] 24 hours a day by calling [phone]. My cell # is [phone]. Prescriptions: New cefuroxime axetil 500 mg tablet 500 mg PO BID 7 Days Qty: 14 RF: 0 potassium chloride 10 mEq capsule, extended release 10 meq PO BID Qty: 14 RF: 0 Continued Medical Marijuana 1 dose PO BID RF: 0 bismuth subsalicylate [Pepto-Bismol] 262 mg/15 mL Suspension 524 mg PO DIRECTED PRN (Reason: UPSET STOMACH) RF: 0 ibuprofen [Advil] 200 mg Tablet 400 - 600 mg PO DIRECTED PRN (Reason: Pain) RF: 0 pseudoephedrine HCl [Sudafed] 30 mg Tablet 30 mg PO Q6H PRN (Reason: Congestion) RF: 0 Vicks DayQuil Cold-Flu Relief 5-10-325 mg/15 mL Liquid PO DIRECTED PRN (Reason: COLD/FLU SYMPTOMS) RF: 0 Stand-Alone Forms: [facility], Work/School Release (Inpt) Discharge Orders: Discharge Order (Routine); Ordered 02/16/19 Ordered By: Hussein Little Admission Data Admit Date/Time: 02/14/19 04:21 Attending Provider: Hussein Little Admit Provider: Des Brooks Primary Care Provider: PCP,NO Other Providers: Des Brooks ; Franko Ireland Service: Medical Other Interventions: Discharge Summary Assessment (RN) Last Done: 02/16/19 12:19 Pending Studies at Discharge: No DC Date/Time DO NOT enter until pt leaves facility: 02/16/19 12:53
== END 2019-02-16 12:53 | disposition home or self-care (01) | DRG 690 ==
LOC: ED 22:04 → SUATTDRO 02-14 04:21 → 4E 02-14 04:21